=== PATIENT | female | born 1960 | race Caucasian/White ===

== ENCOUNTER 2019-07-10 22:01 | Observation (INO) | payer OTHER, SELFPAY ==
[2019-07-10] VITALS (7 sets, daily range): BP systolic 107–165; BP diastolic 65–79; PULSE 58–70; RESP 14–18; TEMP 36.6–36.7; O2SAT 96–98; BMI 40.9; BMI 39.1
--- NOTE | 2019-07-10 22:14 | EKG12_ITS ---
Test Reason : CP Blood Pressure : / mmHG Vent. Rate : 068 BPM Atrial Rate : 068 BPM P-R Int : 170 ms QRS Dur : 082 ms QT Int : 396 ms P-R-T Axes : 019 019 011 degrees QTc Int : 421 ms Normal sinus rhythm Low voltage QRS Borderline ECG Confirmed by ALONSO LAZARO, FLACA ([id number]), supervising editor trailer AJ GARCIA ([id number]) on 07/11/2019 3:02:01 PM Referred By: Faye Thomas Confirmed By:FLACA GUPTA MD
--- NOTE | 2019-07-10 22:14 | RAD_ITS ---
HISTORY:CHEST PAIN/TIGHTNESS CHEST PAIN/TIGHTNESS EXAM: XR Chest 1 View: COMPARISON: None FINDINGS: # of images incl. paperwork: 1 LINES/DEVICES: None. LUNGS: Radiographically clear. No consolidation, edema or effusion. No pneumothorax. MEDIASTINUM AND CARDIOVASCULAR STRUCTURES: Cardiac silhouette not enlarged. BONES AND SOFT TISSUES: Unremarkable. RAD/Chest 1 View (Portable) IMPRESSION: No radiographic evidence of acute cardiopulmonary disease. at 2236 Reported and signed by: Felicitas Tinoco DO Electronically Signed: Felicitas Tinoco DO at 22:35 EDT Tel , Service support ,
--- NOTE | 2019-07-10 22:22 | ED.VIS.GEN ---
History of Present Illness Chief Complaint: Chest Pain Informant: Patient Onset: Today, Hours Context: Sudden Onset Timing: Continuous Quality: Spasming with positive Arnold sign Location: Anterior central and left chest Current Severity: Moderate Maximum Severity: Severe Worsened by: Nothing Relieved by: Nothing Associated Symptoms: Radiation to left scapula and left arm Narrative: Patient is a 59-year-old woman with history of angina who presents with chest tightness. This occurred after having dinner. She states this does not feel like her reflux pain or hiatal hernia pain. She states this is different. She had an abnormal stress test 10 years ago which necessitated a cardiac cath by Dr. Bean Tierney. The cardiac cath did not reveal any significant normality requiring stenting. She was prescribed nitroglycerin. She saw her primary care physician a couple weeks ago. She states he informed her that her EKG had changed from prior. She reports dyspnea with exertion for greater than 2 months and has had chest tightness for approximately 1 to 2 months. She denies hematemesis, melena hematochezia. She denies history of PE or DVT. She denies leg pain, swelling discoloration. Prior similar symptoms: Yes Recent Illness/Hospitalization: No - Past Medical History (1) History of hypertension Status: Acute (2) History of diabetes mellitus Status: Acute (3) History of hypercholesterolemia Status: Acute (4) History of angina pectoris Status: Acute Past Medical History - Allergies and Home Meds Allergies/Adverse Reactions: Allergies No Known Allergies Allergy (Verified 07/10/19 22:08) Primary Care Physician: Michael Kimble MD [Primary Care Provider] - Prior records reviewed: Yes Surgical History: noncontributory Lives: Spouse/ Significant Other Smoking Status: Never smoker Alcohol: None Drugs: None Review of Systems General: Denies: Chills, Fever, Sweats Eyes: Denies: Visual changes - bilaterally, Blurred Vision - bilaterally, Diplopia ENT: Denies: Rhinorrhea, Sore throat Cardiovascular: Reports: Chest pain. Denies: Palpitations, Heart racing, -, - Respiratory: Reports: Dyspnea, Dyspnea on exertion - X2 months going up and down steps in her house. Denies: Cough, Sputum, Orthopnea, Paroxysmal nocturnal dyspnea, -, - Gastrointestinal: Reports: Nausea. Denies: Abdominal pain, Vomiting, Diarrhea, Constipation, Melena, Hematochezia, -, - Genitourinary: Denies: Dysuria, Hematuria, Frequency Musculoskeletal: Denies: Myalgias, Arthralgias, Back pain, Swelling, Extremity Pain Skin: Denies: Rash, Wounds Neurological: Denies: Headache, Weakness, Numbness Psych: Denies: Depression Hematologic: Denies: Easy bruising, Easy bleeding Allergy: Denies: Uticaria, Swelling of the mouth Physical Exam Vital Signs/Narrative: Vital Signs Temp Pulse Resp BP Pulse Ox 07/10/19 22:20 98 07/10/19 22:02 98.1 F 70 14 165/79 H 97 Inital Vital Signs reviewed: Yes General: Well nourished, Well developed, Obese, No Acute Distress, - - Patient appears slightly uncomfortable. Head: Normocephalic, Atraumatic Eyes: Perrl, EOMI ENT: Moist mucous membranes, No rhinorrhea Neck: Supple, Nontender Cardiovascular: Regular rate, Regular rhythm, No murmurs, Normal S1, Normal S2 Respiratory: No distress, CTA bilaterally, Chest nontender Abdomen: Soft, Nontender, Nondistended, Normal bowel sounds, No masses. Negative for: Corona's sign Back: Nontender, Normal Inspection. Negative for: CVA tenderness Extremities: Nontender, No edema, - - There is no asymmetry, swelling, discoloration, leg vein distention, palpable cords or tenderness along the distribution of the deep venous system. Skin: Normal color, No rash, No Trauma. Negative for: Cyanosis, Diaphoresis, Jaundice Neurological: Alert, Oriented x3, Cranial nerves II-XII grossly intact, Normal Strength, Normal Sensation Psychological: Normal affect, Normal Mood Diagnostic/Tx/Re-eval Chest X-Ray - ED: 1 View, Read by ED Physician, Normal, Heart, Lungs, Mediastinum, Bony Structures, No Acute Disease Impressions Chest X-Ray 07/10/19 22:14 IMPRESSION: No radiographic evidence of acute cardiopulmonary disease. at 2236 Reported and signed by: Felicitas Tinoco DO Electronically Signed: Felicitas Tinoco DO at 22:35 EDT Tel , Service support , 07/10/19 22:14 Chest 1 View (Portable) [RAD] Stat Laboratory Results 07/10/19 07/10/19 22:04 22:04 WBC 10.5 RBC 4.22 Hgb 12.9 Hct 38.2 MCV 90.5 MCH 30.6 MCHC 33.8 RDW Std Deviation 40.5 RDW Coeff of Murphy 12.4 Plt Count 330 MPV 10.2 Immature Gran % (Auto) 0.300 Neut % (Auto) 54.9 Lymph % (Auto) 34.7 Wake % (Auto) 6.0 Eos % (Auto) 3.9 Baso % (Auto) 0.2 Absolute Neuts (auto) 5.8 Absolute Lymphs (auto) 3.64 Nucleated RBC % 0 Sodium 139 Potassium 4.3 Chloride 106 Carbon Dioxide 28.0 Anion Gap 5 BUN 25 H Creatinine 1.20 H Estim Creat Clear Calc 35.36 Est GFR (MDRD) Af Amer 59 L Est GFR (MDRD) Non-Af 49 L BUN/Creatinine Ratio 20.8 H Glucose 91 Calcium 8.8 Troponin I < 0.015 - EKG Initial EKG Interpretation: Sinus Rhythm - Sinus rhythm rate of 68. CO interval 170 ms. QRS duration 82 ms. QT duration 396 ms. [place] is normal. Voltage is low. There is motion artifact noted. The EKG is unchanged from August 04, 2008. Prior: Unchanged - Medical Decision Making With history of angina multiple risk factors and abnormal stress test concerned this may represent cardiac etiology. This may also represent GI etiology however she states this is different from her hiatal hernia and reflux pain. She has no symptoms or findings to suggest gallbladder disease. She was treated with aspirin since she is not presently taking aspirin and nitroglycerin. She states she is on no cholesterol medication. 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 Reports minimal improvement with nitroglycerin. She states the nitroglycerin she took at home had more no effect. Because she has history of abnormal stress test and diagnosed with angina by her professor of special education 10 years ago hospitalist has been paged for further inpatient work-up and testing. ED Disposition - Plan for ED Patient: Disposition: Acute Care Hospital [facility] Diagnosis: Chest pain, History of hypertension, History of hyperglycemia, History of hypercholesterolemia, History of angina pectoris Referrals: Michael Kimble MD [Primary Care Provider] -
[2019-07-10 22:23] LABS: Absolute Lymphocyte Count 3.64 X10^3/uL (0.83-4.51); Absolute Neutrophil Count 5.8 X10^3/uL (2.0-7.7); Basophil# 0.02 X10^3/uL; Basophil% 0.2 % (0-1); Eosinophil# 0.41 X10^3/uL; Eosinophils% 3.9 % (0-5); Hematocrit 38.2 % (37-47); Hemoglobin 12.9 g/dL (12.0-15.0); Lymphocyte # 3.64 X10^3/ul (4.0); Lymphocyte % 34.7 % (19-41); Mean Corp Hgb Conc 33.8 g/dL (32-36); Mean Corpuscular Hgb 30.6 pg (27.0-32.0); Mean Corpuscular Volume 90.5 fL (81-99); Mean Platelet Vol. 10.2 fl (6.2-12.0); Monocyte# 0.63 X10^3/uL; NRBC Flagged by Analyzer 0 % (0-5); Neutrophil # 5.75 X10^3/uL (2.7-7.7); Neutrophil % 54.9 % (47-70); Platelet Count 330 K/mm3 (150-450); RBC Distribution Width CV 12.4 % (11.6-14.6); RBC Distribution Width SD 40.5 fl (35.1-43.9); Red Blood Count 4.22 M/mm3 (4.2-5.4); White Blood Count 10.5 K/mm3 (4.4-11.0)
[2019-07-10] MEDS: Nitroglycerin SL (ED/IMG/CATH) 0.4 MG TABLET SUBLINGUAL ×3 (22:25→22:50)
[2019-07-10] MEDS: Aspirin 81 MG TAB.CHEW 324 MG PO (22:25)
[2019-07-10 22:38] LABS: Anion Gap 5 (5-15); BUN 25 mg/dL (7-18); BUN/Creat Ratio 20.8 RATIO (10-20); Calcium,Total 8.8 mg/dL (8.5-10.1); Chloride 106 mmol/L (98-107); EST Glomerular Filtration Rate 49 mL/min (>60); Est Glom Filt Rate - Afr Amer 59 mL/min (>60); Estimated Creatinine Clearance 35.36 ml/min; Glucose 91 mg/dL (74-106); Potassium 4.3 mmol/L (3.5-5.1); Sodium Level 139 mmol/L (136-145)
--- NOTE | 2019-07-10 23:03 | HP.PCM_ITS ---
Problem List (1) Chest pain Status: Acute Qualifiers: Chest pain type: unspecified Qualified Code(s): R07.9 - Chest pain, unspecified (2) Hypertension Status: Chronic Qualifiers: Hypertension type: essential hypertension Qualified Code(s): I10 - Essential (primary) hypertension (3) Hyperlipidemia Status: Chronic Qualifiers: Hyperlipidemia type: unspecified Qualified Code(s): E78.5 - Hyperlipidemia, unspecified (4) Morbid obesity Status: Chronic History of Present Illness Date of Admission: 07/10/19 Chief Complaint: Chest pain The patient is a 59 y/o F w/ PMHx: Diabetes mellitus type II, HTN, HLD, Asthma, Morbid Obesity, CKD stage III who presents to the [facility] ED on 07/10/19 with history of several month history of ongoing exertional dyspnea, primarily with climbing stairs but worsening over the last several weeks as well as history of intermittent midsternal to left-sided chest, underneath breast as well as to this posterior scapular region chest tightness, aching, usually 2-3 out of 10 and independent of activity with no associated nausea, emesis, dyspnea, diaphoresis; however, worsened on evening of ED presentation, more severe nature, rated 10 out of 10 in severity prompting ED presentation. Patient did state that she had seen her physical security engineer and had complained of the chest discomfort and he (Dr. Darby) had felt that it was a spasm at that time. Following NG administration in the emergency room patient rates her discomfort at 1 out of 10, nearly resolved she notes. Work-up in the ED included T 98.1, heart rate 70, BP 165/79 initially with repeat 107/70, respiratory rate 14, 97% on room air, unremarkable CBC, BMP with BUN/creatinine 25/1.20, troponin less than 0.015, chest x-ray with no acute cardia pulmonary findings, EKG with sinus rhythm no acute evidence of ischemia. In the ED patient administered nitroglycerin sublingual with transition to Nitro-Bid 1 inch, aspirin therapy. Past Medical History Past Medical History (Chronic Problems): Chronic Problems Hypertension (Chronic) Hyperlipidemia (Chronic) Morbid obesity (Chronic) Allergies No Known Allergies Allergy (Verified 07/10/19 22:08) Home Medications: Ambulatory Orders Medication Instructions Recorded Diltiazem HCl [Diltiazem ER] 240 mg PO DAILY 07/10/19 Mometasone/Formoterol [Dulera 100 1 puff PO DAILY 07/10/19 Mcg/5 Mcg Inhaler] Nitroglycerin 0.4 mg SL PRN PRN 07/10/19 Surgical History: - - Prior left breast biopsy noted to be benign, D&C. Psychiatric History: No pertinent psych hx PROTEIN SPECIALIST History: No pertinent PROTEIN SPECIALIST history Lives: Spouse/ Significant Other Smoking Status: Never smoker Tobacco Use: Non-smoker Alcohol: None Drugs: None - *Family History Maternal History Items: - - Patient notes a maternal family history of breast cancer, CVA, heart disease with paroxysmal atrial fibrillation. at the age of 88. Paternal History Items: - - Patient notes a paternal family history of colon cancer, at the age of 79. Review of Systems Constitutional: Reports: Malaise, Weakness, Fatigue. Denies: Chills, Fever, Weight Change HEENT: Denies: Head Aches, Sinus Congestion, Sinus Drainage Cardiovascular: Reports: Chest Pain, Chest Tightness. Denies: Heaviness, Light Headedness, Orthopnea, Palpitations, Syncope Respiratory: Denies: Cough, Shortness of Breath, Shortness of breath at rest, Shortness of breath upon exertion, Sputum production, Wheezing Gastrointestinal: Denies: Abdominal Pain, Nausea, Vomiting Genitourinary: Denies: Dysuria Musculoskeletal: Reports: Back Pain, Shoulder Pain. Denies: Joint Pain, Joint Tenderness Skin: Denies: Rash, Wounds Neurological: Denies: Numbness, Tingling, Focal weakness Psychiatric: Denies: Anxiety, Depression, Homicidal Ideations, Suicidal Ideations Hematologic/ Lymphatic: Denies: Easy Bruising, Easy Bleeding VTE Information - Inpt Only VTE Present on Admission: No VTE Mechan Device Prophylaxis: SCD's VTE Pharm Prophylaxis ordered?: Yes Patient Problems: Active and Suspected Problems History of hypertension (Acute) History of hypercholesterolemia (Acute) History of angina pectoris (Acute) Chest pain (Acute) History of hyperglycemia (Acute) Chest pain (Acute) Subjective: Seated upright in the ED bed, notes chest discomfort nearly resolved, currently 1 out of 10. Objective: Physical Examination: General: awake, alert, oriented x 3 and cooperative, seated upright in the ED bed in no apparent distress, notes chest discomfort nearly resolved. Skin: normal color, turgor, no icterus, cyanosis. HEENT: AT/NC, EOMI, PERRLA, MMM, no carotid bruits or JVD noted. Lungs: CTA bilaterally, moderate effort, mild decrease BL bases, no rales, ronchi or wheezing. Heart: Regular rate and rhythm; no gallop, rub audible, no discomfort reproduced with palpation. Abdomen: soft, orbitally obese, NTTP, ND, normal BS, no HSM. Extremities: no cyanosis, clubbing, thickened ankles but no evident edema bilaterally. Neurological: patient awake, alert, oriented x 3; cognitive function intact; pupils equally reactive to light and accomodation; cranial nerves II-XII grossly normal, moving all 4 extremities, no focal deficits, strength moderately global decrease secondary to acute presentation. Psychiatric: affect appears fatigued, no acute evidence of depressive or anxiety feelings. - Physical Exam Vital Signs Temp Pulse Resp BP Pulse Ox 98.1 F 65 16 116/71 97 07/10/19 22:02 07/10/19 22:50 07/10/19 22:50 07/10/19 22:50 07/10/19 22:50 Oxygen Delivery Method Room Air Weight: 209 lb 10.554 oz Body Mass Index (BMI) 40.9 Laboratory Tests Past 24 Hrs 07/10/19 07/10/19 22:04 22:04 WBC 10.5 RBC 4.22 Hgb 12.9 Hct 38.2 MCV 90.5 MCH 30.6 MCHC 33.8 RDW Std Deviation 40.5 RDW Coeff of Murphy 12.4 Plt Count 330 MPV 10.2 Immature Gran % (Auto) 0.300 Neut % (Auto) 54.9 Lymph % (Auto) 34.7 [place] % (Auto) 6.0 Eos % (Auto) 3.9 Baso % (Auto) 0.2 Absolute Neuts (auto) 5.8 Absolute Lymphs (auto) 3.64 Nucleated RBC % 0 Sodium 139 Potassium 4.3 Chloride 106 Carbon Dioxide 28.0 Anion Gap 5 BUN 25 H Creatinine 1.20 H Estim Creat Clear Calc 35.36 Est GFR (MDRD) Af Amer 59 L Est GFR (MDRD) Non-Af 49 L BUN/Creatinine Ratio 20.8 H Glucose 91 Calcium 8.8 Troponin I < 0.015 Assessment/Plan All Active Problems History of hypertension (Acute) History of diabetes mellitus (Acute) History of hypercholesterolemia (Acute) History of angina pectoris (Acute) Chest pain (Acute) History of hyperglycemia (Acute) Chest pain (Acute) The patient is a 59 y/o F w/ PMHx: Diabetes mellitus type II, HTN, HLD, Asthma, Morbid Obesity, CKD stage III who presents to the [facility] ED on 07/10/19 with history of several month history of ongoing exertional dyspnea, primarily with climbing stairs but worsening over the last several weeks as well as history of intermittent midsternal to left-sided chest, underneath breast as well as to this posterior scapular region chest tightness, aching, usually 2-3 out of 10 and independent of activity with no associated nausea, emesis, dyspnea, diaphoresis; however, worsened on evening of ED presentation. (1) Chest Pain: Work-up in the ED included T 98.1, heart rate 70, BP 165/79 initially with repeat 107/70, respiratory rate 14, 97% on room air, unremarkable CBC, BMP with BUN/creatinine 25/1.20, troponin less than 0.015, chest x-ray with no acute cardia pulmonary findings, EKG with sinus rhythm no acute evidence of ischemia. Will admit to PCU, place on a monitored bed to assure no acute myocardial infarction with serial cardiac enzymes and EKGs. If remains unremarkable will pursue a.m. cardiac stress testing. ASA, NG, morphine. FLP in AM. Mag pending. (2) ? CAD: Patient with cardiac catheterization approximately 10 years prior to current presentation, she is unclear if it was nonobstructive disease versus completely normal, will maintain on aspirin, not on statin therapy, not on beta- lam therapy but on Cardizem as noted. (3) Hypertension: Continue home regimen including diltiazem, PRN hydralazine. (4) Hyperlipidemia: Not on regimen, FLP in AM. (5) Chronic Asthma: We will hold home inhalers, temporally transition to ATC duonebs, PRN albuterol, HOB, IS parameters. (6) Morbid Obesity: Weight loss and lifestyle changes encouraged, nutrition consulted. (7) Chronic Kidney Disease Stage III: Admission BUN/Cr 25/1.20, repeat BMP in AM. (8) DVT prophylaxis: SCDs, Lovenox. Code Visit OBSV E&M: 00566 Initial observation care L3
[2019-07-10] MEDS: Nitroglycerin Oint 1 INCH PACKET TRANSDERM. (23:05)
--- NOTE | 2019-07-10 23:54 | EKG12_ITS ---
Test Reason : CP ADMISSION Blood Pressure : / mmHG Vent. Rate : 057 BPM Atrial Rate : 057 BPM P-R Int : 168 ms QRS Dur : 084 ms QT Int : 434 ms P-R-T Axes : 014 017 008 degrees QTc Int : 422 ms Sinus bradycardia Low voltage QRS Borderline ECG When compared with ECG of 05-AUG-2008 08:43, MANUAL COMPARISON REQUIRED, DATA IS UNCONFIRMED Confirmed by ALONSO LAZARO, FLACA ([id number]), social media editor AJ GARCIA ([id number]) on 07/12/2019 12:15:02 PM Referred By: Faye Thomas Confirmed By:FLACA GUPTA MD
[2019-07-11] VITALS (10 sets, daily range): BP systolic 112–141; BP diastolic 57–74; PULSE 60–76; RESP 16–18; TEMP 36.4–36.7; O2SAT 94–96
[2019-07-11 00:33] LABS: Magnesium 1.7 mg/dL (1.6-2.6)
[2019-07-11] MEDS: Ipratropium/Albuterol Sulfate 3 ML AMPUL.NEB INHALATION ×3 (00:40→13:13)
[2019-07-11] MEDS: 0.9% Normal Saline 1,000 ML 100 ML IV ×2 (01:00→13:46)
[2019-07-11] MEDS: 0.9% NaCl Peripheral Flush Adult/Peds IV (01:01)
[2019-07-11 03:59] LABS: Absolute Lymphocyte Count 3.26 X10^3/uL (0.83-4.51); Absolute Neutrophil Count 4.6 X10^3/uL (2.0-7.7); Basophil# 0.03 X10^3/uL; Basophil% 0.3 % (0-1); Eosinophil# 0.39 X10^3/uL; Eosinophils% 4.4 % (0-5); Hematocrit 34.4 % (37-47); Hemoglobin 11.3 g/dL (12.0-15.0); Lymphocyte # 3.26 X10^3/ul (4.0); Lymphocyte % 36.4 % (19-41); Mean Corp Hgb Conc 32.8 g/dL (32-36); Mean Corpuscular Hgb 29.9 pg (27.0-32.0); Mean Platelet Vol. 9.6 fl (6.2-12.0); Monocyte% 7.8 % (0-10); NRBC Flagged by Analyzer 0 % (0-5); Neutrophil # 4.55 X10^3/uL (2.7-7.7); Neutrophil % 50.9 % (47-70); Platelet Count 268 K/mm3 (150-450); RBC Distribution Width CV 12.4 % (11.6-14.6); Red Blood Count 3.78 M/mm3 (4.2-5.4)
[2019-07-11 04:07] LABS: International Normalized Ratio 1.1; Prothrombin Time (Protime)PT. 13.8 SECONDS (11.7-14.9)
[2019-07-11 04:08] LABS: Partial Thromboplast Time 29.7 Seconds (24.1-36.2)
[2019-07-11 04:22] LABS: Anion Gap 8 (5-15); BUN 21 mg/dL (7-18); BUN/Creat Ratio 21.1 RATIO (10-20); Calcium,Total 8.2 mg/dL (8.5-10.1); Chloride 110 mmol/L (98-107); Cholesterol 166 mg/dL (200); EST Glomerular Filtration Rate 60 mL/min (>60); Est Glom Filt Rate - Afr Amer 73 mL/min (>60); Estimated Creatinine Clearance 42.44 ml/min; Glucose 86 mg/dL (74-106); High Density Lipoprotein 50 mg/dL; Potassium 3.4 mmol/L (3.5-5.1); Sodium Level 145 mmol/L (136-145); Triglycerides 144 mg/dL; Very Low Density Lipoprotein 29 mg/dL (5-40)
[2019-07-11] MEDS: Aspirin E.C. 81 MG Tablet PO (05:31)
--- NOTE | 2019-07-11 05:55 | EKG12_ITS ---
Test Reason : AM EKG Blood Pressure : / mmHG Vent. Rate : 057 BPM Atrial Rate : 057 BPM P-R Int : 174 ms QRS Dur : 084 ms QT Int : 426 ms P-R-T Axes : 020 017 007 degrees QTc Int : 414 ms Sinus bradycardia with sinus arrhythmia Low voltage QRS Nonspecific T wave abnormality Abnormal ECG When compared with ECG of 11-JUL-2019 00:02, MANUAL COMPARISON REQUIRED, DATA IS UNCONFIRMED Confirmed by ALONSO LAZARO, FLACA ([id number]), general expeditor AJ GARCIA ([id number]) on 07/12/2019 12:14:49 PM Referred By: Faye Thomas Confirmed By:FLACA GUPTA MD
[2019-07-11] MEDS: dilTIAZem CD 240 MG Capsule PO (11:00)
[2019-07-11] MEDS: Nitroglycerin Oint 1 INCH PACKET 0.5 INCH TRANSDERM. (11:00)
--- NOTE | 2019-07-11 14:02 | STRESSREP ---
Stress Test Report Exercise myocardial perfusion stress test. 59-year-old lady with a history of chest pain. Stress protocol: Resting EKG demonstrates normal sinus rhythm with a rate of 61 bpm. Normal intervals are noted resting blood pressures 122/82 mmHg. The patient exercised according to regular Palmer protocol. This was for a total of 5 minutes and 15 seconds. Patient completed 2 minutes and 15 seconds to stage II of the Palmer protocol the maximum heart rate attained was 133 bpm which was 83% of maximum predicted heart rate maximum workload was 7 metabolic equivalents. At rest there were no ST or T wave changes noted suggest ischemia peak exercise upsloping ST changes only were noted with no meet the criteria for ischemia. The resting blood pressures 122/82 with a peak blood pressure 152/78. Myocardial perfusion protocol. 12.0 mCi of technetium 99m sestamibi was injected at rest. Patient exercised according to regular Palmer protocol for 5 minutes and 15 seconds at peak exercise 36.0 mCi of technetium 99m sestamibi was injected stress images were obtained stress and rest images were reconstructed in comparing the short axis vertical long horizontal long axis. Gated images were also obtained Perfusion SPECT analysis: Review of the stress images demonstrate normal uptake of tracer noted in all areas of the myocardium the resting images similarly demonstrate normal uptake of tracer noted in all areas of the myocardium. No areas of reversibility are noted suggest ischemia. No previous infarct is noted. Gated SPECT analysis: The gated ejection fraction is noted to be 80%. Conclusion: Normal exercise myocardial perfusion stress test at a moderate workload. Preserved ejection fraction.
--- NOTE | 2019-07-11 15:59 | DCINST_ITS ---
- Discharge Diagnoses Current Active Problems: Current Active and Chronic Problems History of hypertension (Acute) History of hypercholesterolemia (Acute) History of angina pectoris (Acute) Chest pain (Acute) History of hyperglycemia (Acute) Chest pain (Acute) Hypertension (Chronic) Hyperlipidemia (Chronic) Morbid obesity (Chronic) You will use the following diet at home:: No restrictions Your food should be the consistency of: Regular Call your doctor if you observe: Shortness of breath, Chest pain - worsening Allergies/Adverse Reactions: Allergies No Known Allergies Allergy (Verified 07/10/19 22:08) Medications to take at Discharge Diltiazem HCl [Diltiazem 24Hr ER] 240 mg PO DAILY 07/10/19 Mometasone/Formoterol [Dulera 100 Mcg/5 Mcg Inhaler] 1 puff PO DAILY 07/10/19 Nitroglycerin 0.4 mg SL PRN PRN 07/10/19 Primary Care Physician: Michael Kimble MD [Primary Care Provider] - Within 2 Weeks Test Results: Test results from this visit will be discussed in further detail at your follow- up appointment, if applicable. Proposed Discharge Date: 07/11/19
--- NOTE | 2019-07-11 16:01 | DS.PCM_ITS ---
Discharge Date and Diagnosis - Problem List Patient Problems: Active and Suspected Problems Chest pain (Acute) Date of Admission: 07/10/19 Date of Discharge: 07/11/19 - Primary Discharge Diagnosis Active and Suspected Problems History of hypertension (Acute) History of hypercholesterolemia (Acute) History of angina pectoris (Acute) Chest pain (Acute) History of hyperglycemia (Acute) Chest pain (Acute) - Secondary Discharge Diagnosis Chronic Problems Hypertension (Chronic) Hyperlipidemia (Chronic) Morbid obesity (Chronic) Hospital Course and Treatment Imaging Results: Clinical Impression(s) from Imaging Studies Chest X-Ray 07/10/19 22:14 IMPRESSION: No radiographic evidence of acute cardiopulmonary disease. at 2236 Reported and signed by: Felicitas Tinoco DO Electronically Signed: Felicitas Tinoco DO at 22:35 EDT Tel , Service support , Operations: None Procedures: Stress test Summary of Care Provided: The patient is a 59 year old F presents with chest pain. Patient underwent a stress test that was unremarkable. Patient is complaining of chest underneath her left breast as well as her upper chest. Etiology is not cardiac could be musculoskeletal. Patient be discharged home in stable condition. [] Patient Problems: Active and Suspected Problems Chest pain (Acute) - Physical Exam General: Alert, No apparent distress HEENT: Atraumatic, Normocephalic Oral: Moist Mucosa, No Gingival or Mucosal Lesions/ Ulcerations Neck: No Nodes, Thyroid Normal Size and Texture Lungs: Clear to auscultation, Normal air movement, No rhonchi, No wheeze Cardiovascular: Regular rate, Regular Rhythm, Normal S1, Normal S2 Abdomen: Bowel Sounds Present, Soft, Non Tender, Non-Distended Extremities: No edema, No Calf Tenderness Vital Signs Temp Pulse Resp BP Pulse Ox 36.5 C L 73 18 141/74 H 94 07/11/19 11:00 07/11/19 15:00 07/11/19 13:13 07/11/19 11:00 07/11/19 11:00 Oxygen Delivery Method Room Air Weight: 90.8 kg Body Mass Index (BMI) 39.1 Intake and Output for Last 24 Hours 07/09/19 07/10/19 07/11/19 23:59 23:59 23:59 Intake Total 0 / 0 1240 / 1240 Balance 0 / 0 1240 / 1240 Laboratory Tests Past 24 Hrs 07/10/19 07/10/19 07/10/19 22:04 22:04 22:04 WBC 10.5 RBC 4.22 Hgb 12.9 Hct 38.2 MCV 90.5 MCH 30.6 MCHC 33.8 RDW Std Deviation 40.5 RDW Coeff of Murphy 12.4 Plt Count 330 MPV 10.2 Immature Gran % (Auto) 0.300 Neut % (Auto) 54.9 Lymph % (Auto) 34.7 [place] % (Auto) 6.0 Eos % (Auto) 3.9 Baso % (Auto) 0.2 Absolute Neuts (auto) 5.8 Absolute Lymphs (auto) 3.64 Nucleated RBC % 0 PT INR APTT Sodium 139 Potassium 4.3 Chloride 106 Carbon Dioxide 28.0 Anion Gap 5 BUN 25 H Creatinine 1.20 H Estim Creat Clear Calc 35.36 Est GFR (MDRD) Af Amer 59 L Est GFR (MDRD) Non-Af 49 L BUN/Creatinine Ratio 20.8 H Glucose 91 Calcium 8.8 Magnesium 1.7 Troponin I < 0.015 Triglycerides Cholesterol LDL Cholesterol VLDL Cholesterol HDL Cholesterol 07/11/19 07/11/19 07/11/19 01:02 03:50 03:50 WBC 9.0 RBC 3.78 L Hgb 11.3 L Hct 34.4 L MCV 91.0 MCH 29.9 MCHC 32.8 RDW Std Deviation 41.0 RDW Coeff of Murphy 12.4 Plt Count 268 MPV 9.6 Immature Gran % (Auto) 0.200 Neut % (Auto) 50.9 Lymph % (Auto) 36.4 [place] % (Auto) 7.8 Eos % (Auto) 4.4 Baso % (Auto) 0.3 Absolute Neuts (auto) 4.6 Absolute Lymphs (auto) 3.26 Nucleated RBC % 0 PT 13.8 INR 1.1 APTT 29.7 Sodium Potassium Chloride Carbon Dioxide Anion Gap BUN Creatinine Estim Creat Clear Calc Est GFR (MDRD) Af Amer Est GFR (MDRD) Non-Af BUN/Creatinine Ratio Glucose Calcium Magnesium Troponin I < 0.015 Triglycerides Cholesterol LDL Cholesterol VLDL Cholesterol HDL Cholesterol 07/11/19 03:50 WBC RBC Hgb Hct MCV MCH MCHC RDW Std Deviation RDW Coeff of Murphy Plt Count MPV Immature Gran % (Auto) Neut % (Auto) Lymph % (Auto) [place] % (Auto) Eos % (Auto) Baso % (Auto) Absolute Neuts (auto) Absolute Lymphs (auto) Nucleated RBC % PT INR APTT Sodium 145 Potassium 3.4 L Chloride 110 H Carbon Dioxide 27.0 Anion Gap 8 BUN 21 H Creatinine 1.00 Estim Creat Clear Calc 42.44 Est GFR (MDRD) Af Amer 73 Est GFR (MDRD) Non-Af 60 BUN/Creatinine Ratio 21.1 H Glucose 86 Calcium 8.2 L Magnesium Troponin I < 0.015 Triglycerides 144 Cholesterol 166 LDL Cholesterol 87 VLDL Cholesterol 29 HDL Cholesterol 50 Discharge Diet: No Restrictions Call your doctor if you observe: Shortness of breath, Chest pain - worsening Home Medications: Medications to take at Discharge Diltiazem HCl [Diltiazem 24Hr ER] 240 mg PO DAILY 07/10/19 Mometasone/Formoterol [Dulera 100 Mcg/5 Mcg Inhaler] 1 puff PO DAILY 07/10/19 Nitroglycerin 0.4 mg SL PRN PRN 07/10/19 Primary Care Physician: Michael Kimble MD [Primary Care Provider] - Within 2 Weeks Disposition: Home Minutes spent on discharge:: 25 Patient Condition:: Good Medical Necessity - Tobacco Use Smoking Status: Never smoker Tobacco Use: Non-smoker Meaningful Use Info Meaningful Use Diagnoses (Choose all that apply): None applicable Code Visit OBSV E&M: 91952 Observation care discharge
== END 2019-07-11 15:59 | disposition home or self-care (01) ==
LOC: ED 22:49 → PCU 23:14
PROVIDERS: Admitting Provider Family Medicine; Emergency Provider Emergency Medicine; Family Provider Internal Medicine; PCP Internal Medicine; Referring Provider Family Medicine
DX: R07.89 Other chest pain (principal); R06.09 Other forms of dyspnea; E78.5 Hyperlipidemia, unspecified; E66.01 Morbid (severe) obesity due to excess calories; E11.22 Type 2 diabetes mellitus with diabetic chronic kidney disease; I12.9 Hypertensive chronic kidney disease with stage 1 through stage 4 chronic kidney disease, or unspecified chronic kidney disease; N18.3 Chronic kidney disease, stage 3 (moderate); Z79.899 Other long term (current) drug therapy; Z68.39 Body mass index [BMI] 39.0-39.9, adult; Z71.3 Dietary counseling and surveillance; J45.909 Unspecified asthma, uncomplicated
CPT/HCPCS: 36415; 71045; 78452; 80048; 80061; 83735; 84484; 85025; 85610; 85730; 93005; 93017; 94640; 96360; 96361; 97802; 99218; 99285; A9500; J7030; A4216; G0378